=== PATIENT | female | born 1985 | race Caucasian/White ===

== ENCOUNTER 2018-03-24 07:48 | Emergency (ER) | payer OTHER ==
[~2018-03-24] VITALS: Ht 170.2 cm; Wt 60.5 kg
[2018-03-24 08:48] LABS: HEMATOCRIT 38.2 % (36.0-46.0); HEMOGLOBIN 13.1 G/DL (11.9-15.5); MCH 30.4 PG (29.0-34.0); MCHC 34.3 G/DL (30.0-36.0); MCV 88.6 FL (83-99); RBC DIS.WIDTH-CV 12.8 % (11.8-14.6); RBC DIS.WIDTH-SD 41.7 % (39-53); RED BLOOD COUNT 4.31 M/uL (3.80-5.20)
[2018-03-24 08:54] LABS: PLATELET COUNT 193 K/uL (156-360)
[2018-03-24 08:57] LABS: CHLORIDE 107 mEq/L (99-109)
[2018-03-24 08:58] LABS: POTASSIUM 4.2 mEq/L (3.7-5.4); SODIUM 139 mEq/L (136-147)
[2018-03-24 08:59] LABS: GLUCOSE 106 mg/dL (70-99)
[2018-03-24 09:03] LABS: CREATININE 0.8 mg/dL (0.6-1.3); GFR ESTIMATE (CALCULATED) > 59 mL/min/
[2018-03-24 09:04] LABS: UREA NITROGEN (BUN) 9 mg/dL (9-23)
[2018-03-24 09:06] LABS: LIPASE 9 U/L (1.0-51.0)
[2018-03-24 09:12] LABS: QUANTITATIVE HCG < 4.0 MIU/ML
[2018-03-24 10:01] LABS: APPEARANCE CLOUDY ((CLEAR)); BILIRUBIN NEGATIVE; BLOOD NEGATIVE; COLOR YELLOW ((YELLOW)); GLUCOSE (STRIP) NEGATIVE; KETONES NEGATIVE; LEUKOCYTES MODERATE; NITRITE NEGATIVE; PROTEIN (STRIP) NEGATIVE; SPECIFIC GRAVITY 1.036 (1.000-1.030); UROBILINOGEN 0.2 MG/DL (0.2-1.0)
[2018-03-24 10:18] LABS: BACTERIA 1+ /HPF; EPITHELIAL CELLS 2+ /HPF; MUCUS 1+ /LPF; RED BLOOD CELLS 0-5 /HPF (0-5); UCUL ADDED? YES
[2018-03-24] MEDS ORDERED: ZOFRAN ODT4 MG PO (10:52)
[2018-03-24] MEDS ORDERED: FLAGYL500 MG PO (10:52)
[2018-03-24] MEDS ORDERED: CIPRO500 MG PO (10:52)
[2018-03-24 11:09] VITALS: BP 116/80
== END 2018-03-24 11:13 | disposition home or self-care (01) ==
LOC: EME 07:48
PROVIDERS: Physician Assistant
DX: K52.9 Noninfective gastroenteritis and colitis, unspecified (principal); N39.0 Urinary tract infection, site not specified; E28.2 Polycystic ovarian syndrome
CPT/HCPCS: 74177; 80048; 81003; 83630; 83690; 84702; 85027; 87086; 87493; 87506; 99281; 99285; J1885; J2405; J7030